=== PATIENT | female | born 1995 ===

== ENCOUNTER 2021-12-16 06:10 | Outpatient (CLI) | payer SELFPAY ==
[~2021-12-16] VITALS: Ht 167.7 cm; Wt 65.0 kg
[2021-12-16 06:19] VITALS: BP 153/85
[2021-12-16 06:27] VITALS: BP 132/82
[2021-12-16] MEDS ORDERED: PNV-9 PO (06:38)
[2021-12-16] MEDS ORDERED: FOLI1TAB33 PO (06:38)
[2021-12-16 06:42] VITALS: BP 118/80
[2021-12-16] MEDS ORDERED: NS IV 1000 ML 1,000 ML IV SCH (06:45)
[2021-12-16] MEDS ORDERED: NS IV 1000 ML 1,000 ML ONE (06:45)
[2021-12-16 06:47] VITALS: BP 123/79
[2021-12-16 06:47] LABS: BILIRUBIN,URINE NEGATIVE (NEGATIVE); CLARITY,URINE CLEAR; COLOR,URINE YELLOW; GLUCOSE, URINE (UA) NEGATIVE (NEGATIVE); KETONES,URINE 1+ (NEGATIVE); LEUKOCYTE ESTERASE ,URINE NEGATIVE (NEGATIVE); NITRITE,URINE NEGATIVE (NEGATIVE); PROTEIN,URINE NEGATIVE (NEGATIVE)
[2021-12-16 07:23] LABS: BACTERIA,URINE NEGATIVE /HPF; SQUAMOUS EPITHELIAL CELL,UR 0-2 /HPF; WBC,URINE 0-2 /HPF
[2021-12-16 07:40] VITALS: BP 141/74
--- NOTE | 2021-12-17 08:22 | Physician Query-Final Dx ---
Clinic Account Progress/Dx Physician Query: Please give diagnosis Please include # weeks gestation Date of Service Dec 16, 2021 at 06:10 WILDER,FebDec 17, 2021 08:22
== END 2021-12-16 08:07 ==
LOC: WSo 06:10 → LDRP 06:12 → WSo 08:07
PROVIDERS: ATTEND Family Medicine
DX: O21.9 Vomiting of pregnancy, unspecified (principal); O26.899 Other specified pregnancy related conditions, unspecified trimester; R10.9 Unspecified abdominal pain; Z3A.00 Weeks of gestation of pregnancy not specified
CPT/HCPCS: 81000; 96360; G0463; 99212

== ENCOUNTER 2022-03-02 11:19 | Inpatient (IN) | payer SELFPAY ==
[2022-03-02] VITALS (9 sets, daily range): BP systolic 93–139; BP diastolic 66–93
[~2022-03-02] VITALS: Ht 167.7 cm; Wt 67.0 kg
[~2022-03-02 11:19] MED LIST: FOLI1TAB33 PO; PNV-9 PO
[2022-03-02] MEDS ORDERED: fentaNYL INJ 100 MCG/2 ML AMP ONE (12:35)
[2022-03-02 12:44] LABS: BASOPHILS % (AUTO) 0 % (0-10); EOSINOPHILS % (AUTO) 0 % (0-10); HEMATOCRIT 25 % (35-52); HEMOGLOBIN 8.5 g/dL (11.5-16.0); LYMPHOCYTES # (AUTO) 1.7 10^3/uL (1.0-4.0); LYMPHOCYTES % (AUTO) 17 % (12-44); MEAN CORPUSCULAR HEMOGLOBIN 32 pg (25-34); MEAN CORPUSCULAR HGB CONC 34 g/dL (32-36); MEAN CORPUSCULAR VOLUME 96 fL (80-99); MONOCYTES # (AUTO) 0.5 10^3/uL (0.0-1.0); MONOCYTES % (AUTO) 5 % (0-12); NEUTROPHILS # (AUTO) 7.8 10^3/uL (1.8-7.8); NEUTROPHILS % (AUTO) 77 % (42-75); PLATELET COUNT 194 10^3/uL (130-400); WHITE BLOOD COUNT 10.1 10^3/uL (4.3-11.0)
[2022-03-02] MEDS ORDERED: metroNIDAZOLE 500MG/100ML IVPB 100 ML IV ONE (12:45)
[2022-03-02] MEDS ORDERED: ceFAZolin INJECTION 2,000 MG in NS (IVPB) 50 ML IV ONE (12:45)
[2022-03-02] MEDS ORDERED: metroNIDAZOLE 500MG/100ML IVPB 100 ML ONE (12:46)
[2022-03-02] MEDS ORDERED: ceFAZolin INJECTION 2,000 MG ONE (12:46)
[2022-03-02] MEDS ORDERED: NS (IVPB) 50 ML ONE (12:47)
[2022-03-02] MEDS ORDERED: METOCLOPRAMIDE INJ 10 MG/2 ML (REGLAN) ONE (12:49)
[2022-03-02] MEDS ORDERED: CITRIC ACID/SOB CIT (BICITRA) 30 ML UDC ONE (12:49)
[2022-03-02] MEDS ORDERED: FAMOTIDINE 20MG/2ML IV (PEPCID) ONE (12:49)
[2022-03-02] MEDS ORDERED: OXYTOCIN PRE-MIX DRIP 1,000 ML IV ONE (12:50)
[2022-03-02] MEDS ORDERED: LACTATED RINGERS 1,000 ML IV PRN (13:30)
[2022-03-02] MEDS ORDERED: ONDANSETRON 4 MG/2 ML (SDV) Z0FRAN ONE (13:36)
[2022-03-02] MEDS ORDERED: BUPIVACAINE 0.5% 30 ML (SENSORCAINE) VIAL ONE (13:36)
[2022-03-02] MEDS ORDERED: OXYTOCIN PRE-MIX DRIP 500 ML IV SCH (14:00)
[2022-03-02] MEDS ORDERED: NALOXONE 0.4 MG/ML 1 ML (NARCAN) VIAL IV PRN (14:00)
[2022-03-02] MEDS ORDERED: PROMETHAZINE INJ 25 MG/ML (PHENERGAN) AMP IM PRN (14:00)
[2022-03-02] MEDS ORDERED: MEPERIDINE (DEMEROL) INJ 100 MG/ML IM PRN (14:00)
[2022-03-02] MEDS ORDERED: D5 LR IV SOLUTION 1,000 ML IV SCH (14:00)
[2022-03-02] MEDS ORDERED: TETANUS,DIPTH,PERTUSS P/F (BOOSTRIX) 0.5 ML VIAL IM ONE (14:00)
[2022-03-02] MEDS: KETOROLAC 30 MG/ML VIAL IV SCH ×2 (14:35→20:17)
[2022-03-02] MEDS: oxyCODONE/APAP 10/325MG (PERCOCET 10) TABLET PO PRN (16:40)
[2022-03-02] MEDS: CATHETER FLUSH 10 ML SYR IV SCH ×2 (19:49→20:17)
[2022-03-02] MEDS: DOCUSATE SODIUM 100 MG (COLACE) CAP PO SCH (20:17)
--- NOTE | 2022-03-02 22:16 | OPERATIVE REPORT ---
DATE OF SERVICE: 03/02/2022 CONDUCTOR/BRAKEMAN: Robinson Swartz MD PREOPERATIVE DIAGNOSIS: A 41-week in labor with footling breech presentation. POSTOPERATIVE DIAGNOSIS: A 41-week , in labor with footling breech presentation. OPERATIVE PROCEDURE: Primary low transverse delivery of a viable male infant with Apgars of 8 and 9 at one and five minutes respectively, weight of 7 pounds 15 ounces. Cord blood pH of 7.23 and a time of 1312. DESCRIPTION OF PROCEDURE: With the patient in the supine position, under satisfactory spinal analgesia, she was prepped and draped in the usual fashion for abdominal surgery. Jasso catheter was placed in the urinary bladder. A Pfannenstiel incision was made through the skin with a scalpel. The patient's abdomen was entered in the usual manner. Bladder retractor was placed in the position. Clean scalpel used to make a 4 cm hysterotomy incision transversely across the lower uterine segment that was extended bluntly as well. Clear fluid was released on hysterotomy. A vigorous viable male was delivered via uterine incision by breech extraction from a double footling breech presentation. It was a compound presentation with a funic component to the presentation as well. The was delivered in the usual manner via breech extraction and the was then bulb suctioned on completion of delivery. The umbilical cord was doubly clamped and cut and the infant taken to the warmer by Dr. Swartz, the marine surveyor in attendance for delivery. Cord bloods were obtained. The placenta delivered spontaneously Krause, it was normal with a 3-vessel cord. The uterus was exteriorized, the interior wiped clean with a wet laparotomy sponge. Uterine incision was then closed with a running locked suture of 2-0 Vicryl. Hemostasis was complete. The uterus was returned to the abdominal cavity. All blood clot and debris removed from the abdominal cavity. Sponge and needle counts were correct. Hemostasis assured. Anterior parietal peritoneum was closed with a running suture of 2-0 Vicryl and the rectus muscles were closed with that suture as well. The rectus fascia was closed with 2-0 Vicryl. Subcutaneous tissue was closed with 2-0 Vicryl and the skin was stapled. Sponge and needle counts were correct on completion of the procedure. Blood loss was around 600 mL. The patient tolerated the procedure well and was transferred to the recovery room in stable condition. The infant had been taken stable to the full term nursery under the care of Dr. Swartz. Job ID: [id number] DocumentID: [id number] Dictated Date: 03/02/2022 14:29:27 Doctor Podiatric Medicine Date: 03/02/2022 22:14:00 Dictated By: LORENZO KENNY MD
[2022-03-03] VITALS: BP 147/86
[2022-03-03] MEDS: KETOROLAC 30 MG/ML VIAL IV SCH (01:27)
[2022-03-03 04:50] VITALS: BP 143/83
--- NOTE | 2022-03-03 08:13 | Progress Note ---
Standard Progress Note Progress Notes/Assess & Plan Date Seen by a Provider: Mar 03, 2022 Time Seen by a Provider: 08:12 Progress/Assessment & Plan This patient is without complaint. She is ambulating, voiding, tolerating oral intake well and has good pain control. Patient denies chest pain, denies shortness of breath, denies nausea and vomiting, and denies headache. Vital Signs Date Time Temp Pulse Resp B/P (MAP) Pulse Ox O2 Delivery O2 Flow Rate FiO2 03/03/22 04:50 36.5 89 18 143/83 (103) 98 Room Air 03/03/22 00:00 36.4 96 18 147/86 (106) 99 Room Air 03/02/22 20:17 36.9 87 18 139/85 (103) 99 Room Air 03/02/22 20:04 Room Air 03/02/22 16:39 36.5 72 18 137/80 (99) 100 Room Air 03/02/22 14:30 Room Air 03/02/22 14:28 36.1 18 117/66 (83) 100 Room Air 03/02/22 14:13 36.1 18 125/82 (96) 98 Room Air 03/02/22 14:13 Room Air 03/02/22 14:00 Room Air 03/02/22 13:57 36.0 16 110/70 (83) 100 Room Air 03/02/22 13:42 Room Air 03/02/22 13:42 36.2 16 93/70 (78) 100 Room Air 03/02/22 12:25 37.0 88 18 98 Room Air 03/02/22 11:45 37.0 88 18 138/93 Room Air 03/02/22 11:42 37.0 88 18 138/93 (108) 98 Room Air I & O 03/03/22 07:00 Intake Total 3250 ml Output Total 1000 ml Balance 2250 ml Signs are stable. Patient is afebrile. The abdomen is benign. The surgical incision is clean dry and intact. Fundus is firm below the umbilicus and nontender. Extremities show no clubbing or cyanosis. There is no Homans' sign. Assessment and plan Postoperative day #1 status post from a delivery. Patient doing well and will have routine convalescent care LORENZO KENNY MD Mar 03, 2022 08:13
[2022-03-03] MEDS ORDERED: DOCU100C37 PO (08:16)
[2022-03-03] MEDS ORDERED: IBUP-1780 PO (08:16)
[2022-03-03] MEDS ORDERED: OXYC1TAB12 PO (08:16)
--- NOTE | 2022-03-03 08:18 | Discharge Inst-Surgical ---
Discharge Inst-Surgical Depart Medication/Instructions New, Converted or Re-Newed RX: Transmitted to Pharmacy Consults/Follow Up Orders & Referrals Follow Up Appt: RTC 1 week for incision check with Dr. Aj Call to make follow up appt. for patient in [address] Sherman. Wound Care: Remove bronson, apply benzoin and steri strips. Activity Per routine post instructions. Prescriptions have been submitted electronically for Percocet Motrin and Colace patient can continue her own home medication Diet as tolerated Patient may shower or tub bathe as desired. Continue home meds Activity Activity as Tolerated: No Diet Discharge Diet: No Restrictions LORENZO AJ MD Mar 03, 2022 08:18
[2022-03-03] MEDS ORDERED: IBUPROFEN 800 MG (MOTRIN) TAB PO ONE (09:44)
[2022-03-03] MEDS: IBUPROFEN 800 MG (MOTRIN) TAB PO SCH ×2 (09:47→17:05)
[2022-03-03] MEDS: DOCUSATE SODIUM 100 MG (COLACE) CAP PO SCH ×2 (09:47→20:21)
[2022-03-03] MEDS: oxyCODONE/APAP 10/325MG (PERCOCET 10) TABLET PO PRN ×2 (09:47→20:22)
[2022-03-03 09:56] VITALS: BP 116/61
--- NOTE | 2022-03-03 14:07 | Anesthesia-Regional Post-Op ---
Regional Patient Condition Mental Status: Alert, Oriented x3 Circulation: Same as Pre-Op Headache: Absent Sensation: Full Recovery Motor Block: Absent Post Op Complications Complications None Follow Up Care/Instructions Patient Instructions None needed. Anesthesia/Patient Condition Patient is doing well, no complaints, stable vital signs, no apparent adverse anesthesia problems. No complications reported per nursing. ANDRE VIEYRA DO Mar 03, 2022 14:07
[2022-03-03 14:43] VITALS: BP 138/76
[2022-03-03 18:40] VITALS: BP 131/77
[2022-03-03 21:25] VITALS: BP 134/78
[2022-03-04] MEDS: IBUPROFEN 800 MG (MOTRIN) TAB PO SCH ×2 (02:40→09:41)
[2022-03-04 02:45] VITALS: BP 131/76
--- NOTE | 2022-03-04 09:05 | Progress Note ---
Standard Progress Note Progress Notes/Assess & Plan Date Seen by a Provider: Mar 04, 2022 Time Seen by a Provider: 09:04 Progress/Assessment & Plan This patient is without complaint. She is ambulating, voiding, tolerating oral intake well and has good pain control. Patient denies chest pain, denies shortness of breath, denies nausea and vomiting, and denies headache. Vital Signs Date Time Temp Pulse Resp B/P (MAP) Pulse Ox O2 Delivery O2 Flow Rate FiO2 03/03/22 04:50 36.5 89 18 143/83 (103) 98 Room Air 03/03/22 00:00 36.4 96 18 147/86 (106) 99 Room Air 03/02/22 20:17 36.9 87 18 139/85 (103) 99 Room Air 03/02/22 20:04 Room Air 03/02/22 16:39 36.5 72 18 137/80 (99) 100 Room Air 03/02/22 14:30 Room Air 03/02/22 14:28 36.1 18 117/66 (83) 100 Room Air 03/02/22 14:13 36.1 18 125/82 (96) 98 Room Air 03/02/22 14:13 Room Air 03/02/22 14:00 Room Air 03/02/22 13:57 36.0 16 110/70 (83) 100 Room Air 03/02/22 13:42 Room Air 03/02/22 13:42 36.2 16 93/70 (78) 100 Room Air 03/02/22 12:25 37.0 88 18 98 Room Air 03/02/22 11:45 37.0 88 18 138/93 Room Air 03/02/22 11:42 37.0 88 18 138/93 (108) 98 Room Air I & O 03/03/22 07:00 Intake Total 3250 ml Output Total 1000 ml Balance 2250 ml Signs are stable. Patient is afebrile. The abdomen is benign. The surgical incision is clean dry and intact. Fundus is firm below the umbilicus and nontender. Extremities show no clubbing or cyanosis. There is no Homans' sign. Assessment and plan Postoperative day #1 status post from a delivery. Patient doing well and will have routine convalescent care February 01, 2021 Patient is without complaint. She is ambulating, voiding, tolerating oral intake well has good pain control. Vital Signs Date Time Temp Pulse Resp B/P (MAP) Pulse Ox O2 Delivery O2 Flow Rate FiO2 03/04/22 02:45 36.8 76 18 131/76 (94) 99 Room Air 03/03/22 21:25 36.7 81 17 134/78 (96) 98 Room Air 03/03/22 18:40 36.8 83 18 131/77 (95) 99 Room Air 03/03/22 14:43 36.6 90 18 138/76 (96) 98 Room Air 03/03/22 09:56 37.2 90 18 116/61 (79) 99 Room Air Vital signs are stable. Patient is afebrile. The abdomen is benign. The surgical incision is clean dry and intact. Extremities show no clubbing or cyanosis. There is no Homans' sign. Assessment and plan Postoperative day #2 status postPrimary delivery for breech presen tation at 40+ weeks gestation. Plan is for routine convalescent care with discharge home when patient requests discharge either today or tomorrow Final Diagnosis 40-week primary LORENZO KENNY MD Mar 04, 2022 09:05
[2022-03-04 09:36] VITALS: BP 159/79
[2022-03-04] MEDS: oxyCODONE/APAP 10/325MG (PERCOCET 10) TABLET PO PRN (09:40)
[2022-03-04] MEDS: DOCUSATE SODIUM 100 MG (COLACE) CAP PO SCH (09:40)
[2022-03-04 12:31] VITALS: BP 155/83
== END 2022-03-04 14:15 | disposition home or self-care (01) | DRG 788 ==
LOC: WSo 11:19 → LDRP 11:19 → WSo 11:20 → LDRP 11:21
PROVIDERS: ADMIT Family Medicine; ATTEND Obstetrics & Gynecology
PROC: 10D00Z1 Extraction of Products of Conception, Low, Open Approach (ICD-10-PCS; principal; 2022-03-02 12:56)
DX: O48.0 Post-term pregnancy (principal); O32.1XX0 Maternal care for breech presentation, not applicable or unspecified; Z3A.40 40 weeks gestation of pregnancy; Z37.0 Single live birth
CPT/HCPCS: 36415; 85025; 86780; 86850; 86900; 86901; 94664; 99212